=== PATIENT | female | born 1995 | race African-American/Black ===

== ENCOUNTER 2018-04-08 03:38 | Emergency (ER) | payer SELFPAY ==
[~2018-04-08] VITALS: Ht 170.2 cm; Wt 54.4 kg
[2018-04-08 03:45] VITALS: BP 120/78
[2018-04-08] MEDS ORDERED: POLY119P4 PO (04:06)
--- NOTE | 2018-04-08 04:06 | PHYS DOC ---
Past Medical History Additional Past Surgical Histo: umbilical and ventral hernia repair Alcohol Use: None Drug Use: None Adult General Chief Complaint Chief Complaint: CONSTIPATION HPI HPI Patient is a 22 year old female who presents with a three-month history of constipation issues. No significant relief with her [id number] laxatives. Patient has seen no other physician for this. Patient has had no recent changes in weight. No blood in her stool. No nausea or vomiting.[] Review of Systems Review of Systems Constitutional: Denies fever or chills [] Eyes: Denies change in visual acuity, redness, or eye pain [] HENT: Denies nasal congestion or sore throat [] Respiratory: Denies cough or shortness of breath [] Cardiovascular: No chest pain or palpitations[] GI: See history of present illness[] : Denies dysuria or hematuria [] Musculoskeletal: Denies back pain or joint pain [] Integument: Denies rash or skin lesions [] Neurologic: Denies headache, focal weakness or sensory changes [] Endocrine: Denies polyuria or polydipsia [] All other systems were reviewed and found to be within normal limits, except as documented in this note. Physical Exam Physical Exam Constitutional: Well developed, well nourished, no acute distress, non-toxic appearance. [] HENT: Normocephalic, atraumatic, bilateral external ears normal, oropharynx moist, no oral exudates, nose normal. [] Eyes: PERRLA, EOMI, conjunctiva normal, no discharge. [] Neck: Normal range of motion, no tenderness, supple, no stridor. [] Cardiovascular:Heart rate regular rhythm, no murmur [] Lungs & Thorax: Bilateral breath sounds clear to auscultation [] Abdomen: Bowel sounds normal, soft, no tenderness, no masses, no pulsatile masses. [] Skin: Warm, dry, no erythema, no rash. [] Back: No tenderness, no CVA tenderness. [] Extremities: No tenderness, no cyanosis, no clubbing, ROM intact, no edema. [] Neurologic: Alert and oriented X 3, normal motor function, normal sensory function, no focal deficits noted. [] Psychologic: Affect normal, judgement normal, mood normal. [] EKG EKG [] Radiology/Procedures Radiology/Procedures [] Course & Med Decision Making Course & Med Decision Making Pertinent Labs and Imaging studies reviewed. (See chart for details) Medical decision making: Given that this is been going on for 3 months do not see the urgent interventions at this time. Patient has a soft abdomen, nonsurgical abdomen.[] Dragon Disclaimer Dragon Disclaimer This electronic medical record was generated, in whole or in part, using a voice recognition dictation system. Departure Departure Impression: Primary Impression: Constipation Disposition: HOME, SELF-CARE Condition: GOOD Patient Instructions: Constipation, Adult Additional Instructions: Drink plenty of fluids. Increase the fiber in your diet. This can be done by including a cereal with "bran" or "fiber" in the name. Follow-up with your regular doctor in 2 days. If you do not have a regular doctor a list of local low-cost clinics will be provided for you. Return to the ER if there is blood in her stool or you are unable to tolerate oral intake, or any other concerns. Scripts Polyethylene Glycol 3350 (MIRALAX) 119 Gm Powder 17 GM PO DAILY, #255 GM Prov: MING ALVAREZ DO 04/08/18 Problem Qualifiers Primary Impression: Constipation Constipation type: unspecified constipation type Qualified Codes: K59.00 - Constipation, unspecified MING ALVAREZ DO Apr 08, 2018 04:06
== END 2018-04-08 04:15 | disposition home or self-care (01) ==
LOC: ER 03:38
DX: K59.00 Constipation, unspecified (principal)
CPT/HCPCS: 99282

== ENCOUNTER 2018-10-31 14:10 | Emergency (ER) | payer SELFPAY ==
[~2018-10-31] VITALS: Ht 170.2 cm; Wt 54.4 kg
[~2018-10-31 14:10] MED LIST: POLY119P4 PO
[2018-10-31 14:19] VITALS: BP 107/57
--- NOTE | 2018-10-31 15:02 | RAD ---
SHOULDER 2+V LEFT History: Pain.. No evidence of acute fracture. No aggressive bone destruction. Joint spaces and alignment appear intact. No significant soft tissue abnormality. IMPRESSION: No evidence of acute fracture or dislocation. Electronically signed by: Campos Nuno MD (10/31/2018 2:59 PM) [facility]
--- NOTE | 2018-10-31 15:08 | PHYS DOC ---
Past Medical History Past Medical History: No Pertinent History Past Surgical History: Other Additional Past Surgical Histo: umbilical and ventral hernia repair Alcohol Use: None Drug Use: None Adult General Chief Complaint Chief Complaint: UPPER EXTREMITY PAIN HPI HPI Patient is a 22 year old female who presents with 7 out of 10 intermittent episodes of left shoulder pain described as throbbing worse on range of motion and laying on her left shoulder that began a month ago. Patient denies any known injury. She states she has not tried anything specifically to relieve the pain. Review of Systems Review of Systems Constitutional: Denies fever or chills [] Musculoskeletal: Reports left shoulder pain Integument: Denies rash or skin lesions [] Neurologic: Denies headache, focal weakness or sensory changes [] All other systems were reviewed and found to be within normal limits, except as documented in this note. Allergies Allergies Allergies Coded Allergies Type Severity Reaction Last Updated Verified No Known Drug Allergies 04/08/18 No Physical Exam Physical Exam Constitutional: Well developed, well nourished, no acute distress, non-toxic appearance. [] Skin: Warm, dry, no erythema, no rash. [] Back: No tenderness, no CVA tenderness. [] Extremities: Left shoulder with no obvious deformity, no tenderness, full range of motion to the left shoulder. Neurovascular exam to the left upper extremity is intact. +2 radial pulse. Cap refill less than 2 seconds and left fingers. Neurologic: Alert and oriented X 3, normal motor function, normal sensory function, no focal deficits noted. [] Psychologic: Affect normal, judgement normal, mood normal. [] Current Patient Data Vital Signs Vital Signs Date Time Temp Pulse Resp B/P (MAP) Pulse Ox O2 Delivery O2 Flow Rate FiO2 10/31/18 14:19 98.3 89 16 107/57 (74) 97 Room Air 98.3 EKG EKG [] Radiology/Procedures Radiology/Procedures []PROCEDURE: SHOULDER 2+V LEFT SHOULDER 2+V LEFT History: Pain.. No evidence of acute fracture. No aggressive bone destruction. Joint spaces and alignment appear intact. No significant soft tissue abnormality. IMPRESSION: No evidence of acute fracture or dislocation. Electronically signed by: Marlyn Nuno MD (10/31/2018 2:59 PM) [facility] DICTATED and SIGNED BY: MARLYN NUNO MD DATE: 10/31/18 9463 Course & Med Decision Making Course & Med Decision Making Pertinent Labs and Imaging studies reviewed. (See chart for details) This is a 22-year-old female patient presented to the ED today complaining of left shoulder pain for month, no known injury. Left shoulder x-rays are negative for any acute findings. Provided orthopedic doctor for follow-up. Ice elevation encouraged. OTC pain relievers also recommended. Dragon Disclaimer Dragon Disclaimer This electronic medical record was generated, in whole or in part, using a voice recognition dictation system. Departure Departure Impression: Primary Impression: Left shoulder pain Disposition: HOME, SELF-CARE Condition: STABLE Referrals: NO PCP (PCP) GEOVANNA MONACO MD follow up in one week Patient Instructions: Shoulder Pain, [id number] Additional Instructions: You were evaluated for left shoulder pain, your left shoulder x-rays are negative for any acute findings. Please try to ice and elevate the extremity. You can take Tylenol or Motrin for pain. Follow-up with orthopedic doctor pr ovided in 1-2 weeks as needed. Problem Qualifiers Primary Impression: Left shoulder pain Chronicity: acute Qualified Codes: M25.512 - Pain in left shoulder M[facility] [employer] Oct 31, 2018 15:08
== END 2018-10-31 15:16 | disposition home or self-care (01) ==
LOC: ER 14:10
DX: M25.512 Pain in left shoulder (principal)
CPT/HCPCS: 73030; 99284

== ENCOUNTER 2019-09-28 22:43 | Emergency (ER) | payer BC ==
[~2019-09-28] VITALS: Ht 167.6 cm; Wt 58.0 kg
[2019-09-28 23:19] VITALS: BP 127/89
[2019-09-29] MEDS ORDERED: ORPH100T PO (00:21)
[2019-09-29] MEDS ORDERED: LIDO1ADH79 TP (00:21)
[2019-09-29] MEDS ORDERED: PRED20TA PO (00:21)
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
[2019-09-29] MEDS ORDERED: DEXAMETHASONE 4 MG TABLET PO ONE (00:30)
[2019-09-29] MEDS ORDERED: KETOROLAC 30 MG/ML VIAL. IM ONE (00:30)
[2019-09-29] MEDS ORDERED: LIDOCAINE (700MG/PATCH) PATCH. TD ONE (00:30)
== END 2019-09-29 01:04 | disposition home or self-care (01) ==
LOC: ER 22:43
DX: M54.41 Lumbago with sciatica, right side (principal); M54.42 Lumbago with sciatica, left side; V49.88XD Car occupant (driver) (passenger) injured in other specified transport accidents, subsequent encounter
CPT/HCPCS: 96372; 99283; J1885; J8540; 81025